=== PATIENT | female | born 1970 ===

== ENCOUNTER 2017-11-23 20:06 | Observation (INO) | payer BC ==
[2017-11-23 21:35] LABS: BASO # 0.1 K/uL (0.0-0.2); BASO % 0.4 % (0.0-2.0); EOS % 0.1 % (0.0-4.0); HEMOGLOBIN 12.6 g/dL (12.0-16.0); LYMPH # 1.5 K/uL (1.0-4.3); LYMPH % 10.1 % (20.0-40.0); MEAN CELL VOLUME 86.7 fl (81.0-99.0); MEAN CORPUSCULAR HEMOGLOBIN 28.3 pg (27.0-31.0); MEAN CORPUSCULAR HGB CONC 32.6 g/dL (33.0-37.0); MEAN PLATELET VOLUME 7.1 fl (7.2-11.7); MONO # 0.4 K/uL (0.0-0.8); MONO % 2.5 % (0.0-10.0); NEUT # 12.7 K/uL (1.8-7.0); NEUT % 86.9 % (50.0-75.0); NRBC % 0.1 % (0.0-0.0); RBC 4.47 Mil/uL (3.80-5.20); RED CELL DISTRIBUTION WIDTH 14.9 % (11.5-14.5); WHITE BLOOD COUNT 14.7 K/uL (4.8-10.8)
--- NOTE | 2017-11-23 21:42 | ED PDOC ---
HPI:Nausea, Vomiting, Diarrhea Time Seen by Provider: 11/23/17 20:25 Chief Complaint (Nursing): GI Problem Chief Complaint (Provider): GI Problem History Per: Patient History/Exam Limitations: no limitations Onset/Duration Of Symptoms: Days (x1) Current Symptoms Are (Timing): Still Present Additional Complaint(s): 47 year old female with medical history of breast cancer, who presents to the emergency department with a complaint of nausea, vomiting, chills and fatigue ongoing since 1500 today. Patient is currently undergoing treatments with chemotherapy at [facility] (last treatment was 2 weeks ago). PMD: Tuan Ferraro MD Past Medical History Reviewed: Historical Data, Nursing Documentation, Vital Signs Vital Signs: Last Vital Signs Temp 97.7 F 11/23/17 20:16 Pulse 79 11/23/17 20:16 Resp 17 11/23/17 20:16 BP 124/70 11/23/17 20:16 Pulse Ox 99 11/23/17 20:16 - Medical History PMH: CVA, Malignancy (breast CA) - Surgical History Surgical History: Denies: No Surg Hx Other surgeries: left wrist lymphectomy - Family History Family History: States: Unknown Family Hx - Social History Current smoker - smoking cessation education provided: No Alcohol: None Drugs: Denies - Home Medications Home Medications: Ambulatory Orders Medication Instructions Recorded No Known Home Med 11/24/17 - Allergies Allergies/Adverse Reactions: Allergies Allergy/AdvReac Type Severity Reaction Status Date / Time No Known Allergies Allergy Verified 11/23/17 20:18 Review of Systems ROS Statement: Except As Marked, All Systems Reviewed And Found Negative Constitutional: Positive for: Chills, Malaise (fatigue). Negative for: Fever Respiratory: Negative for: Cough Gastrointestinal: Positive for: Nausea, Vomiting. Negative for: Abdominal Pain , Diarrhea Physical Exam - Reviewed Nursing Documentation Reviewed: Yes Vital Signs Reviewed: Yes - Physical Exam Appears: Positive for: Non-toxic, No Acute Distress Skin: Positive for: Warm, Dry. Negative for: Rash, Cyanosis Eye Exam: Positive for: Normal appearance, EOMI, PERRL. Negative for: Nystagmus , Scleral icterus ENT: Positive for: Other (dry mucous membranes). Negative for: Normal ENT Inspection Neck: Positive for: Normal, Painless ROM, Supple. Negative for: Decreased ROM Cardiovascular/Chest: Positive for: Regular Rate, Rhythm, Chest Non Tender Respiratory: Positive for: Normal Breath Sounds. Negative for: Decreased Breath Sounds, Wheezing, Respiratory Distress Gastrointestinal/Abdominal: Positive for: Normal Exam, Soft. Negative for: Tenderness, Mass Extremity: Positive for: Normal ROM (upper/lower). Negative for: Pedal Edema ( bilateral) Neurologic/Psych: Positive for: Alert (x3), Oriented - Laboratory Results Result Diagrams: 11/23/17 21:26 11/23/17 21:26 - ECG O2 Sat by Pulse Oximetry: 99 (RA) Pulse Ox Interpretation: Normal Medical Decision Making Medical Decision Making: Initial Impression: Nausea; Vomiting Initial Plan: * CMP * Urine * CBC * NS 1,000ml IV per 1,000mls/hr * Zofran inj 8mg IVP * Urine culture * Influenza A B * UA Labs reviewed : WBC is 14. Rapid flu (-). Considering elevated wbc UA, CXR ordered. On re-evaluation, patient reports that the nausea had improved, however returned and c/o dizziness as well. On exam, patient remains AAOx3, in mild distress. On exam, abdomen soft, non-tender, repeat neuro exam shows no focal findings. Medicated with reglan 10 mg IV and benadryl 25 mg IV. CXR : NAD, as read by [facility]. UA shows no UTI. EKG : NSR at 86 bpm, (+) LVH, as read by [facility]. On second re-evaluation, patient reports of continue dizziness and nausea after she returned from XR, patient with difficulty tolerating po fluids. Based on history, exam and diagnostic results, plan will be for inpatient observation. Case d/w Dr. Deleon, agrees with plan for inpt obs. Patient notified of further plan for inpatient care and she agrees with plan. Patient states she fully agrees with and understands further plan of care. I have given the patient opportunity to ask any additional questions Scribe Attestation: Documented by Mehnaz Brasher, acting as a scribe for Roxanne Salvador PA-C. Provider Scribe Attestation: All medical record entries made by the Scribe were at my direction and personally dictated by me. I have reviewed the chart and agree that the record accurately reflects my personal performance of the history, physical exam, medical decision making, and the department course for this patient. I have also personally directed, reviewed, and agree with the discharge instructions and disposition. Disposition - Clinical Impression Clinical Impression: Intractable nausea and vomiting, Dehydration - Patient ED Disposition Is Patient to be Admitted: Yes Counseled Patient/Family Regarding: Studies Performed, Diagnosis - Disposition Disposition Time: 00:45 Condition: STABLE - PA / PREDICTIVE MAINTENANCE SPECIALIST / Resident Statement / has reviewed & agrees with the documentation as recorded.
[2017-11-23 21:45] LABS: ALB/GLOB RATIO 1.4 (1.0-2.1); ALBUMIN 4.2 g/dL (3.5-5.0); ALT/SGPT 64 U/L (9-52); AST/SGOT 30 U/L (14-36); BLOOD UREA NITROGEN 19 mg/dl (7-17); CALCIUM 9.5 mg/dL (8.4-10.2); GFR AFRICAN-AMERICAN > 60; GFR NON-AFRICAN AMERICAN > 60
[2017-11-23] MEDS: Sodium Chloride 0.9% 1,000 ML IV SCH (21:53)
[2017-11-23] MEDS ORDERED: DiphenhydrAMINE 50 mg/ml Inj IVP STA (22:34)
[2017-11-23] MEDS ORDERED: DiphenhydrAMINE 50 mg/ml Inj ONE (22:37)
[2017-11-23 23:16] LABS: SQUAMOUS EPITHIAL 6 /hpf (0-5); URINE BACTERIA RARE (<OCC); URINE BILIRUBIN NEGATIVE (NEGATIVE); URINE CLARITY SLIGHTY-CLOUDY (Clear); URINE COLOR YELLOW (YELLOW); URINE GLUCOSE (UA) NEG (Normal); URINE LEUKOCYTE ESTERASE NEG Leu/uL (Negative); URINE NITRATE NEGATIVE (NEGATIVE); URINE PROTEIN NEGATIVE (NEGATIVE); URINE UROBILINOGEN 0.2-1.0 mg/dL (0.2-1.0)
[2017-11-23 23:17] LABS: URINE BLOOD SMALL (NEGATIVE)
[2017-11-24] MEDS ORDERED: Sodium Chloride 0.9% 1,000 ML IV SCH (01:00)
[2017-11-24] MEDS: Sodium Chloride 0.9% 1,000 ML IV SCH ×5 (07:24→15:33)
--- NOTE | 2017-11-24 10:25 | CP.PCM.HP ---
History of Present Illness - History of Present Illness History of Present Illness: CC: Nausea/vomiting, dizziness A 47 year old female with hx of breast ca currently undergoing chemotherapy treatment at [facility] presents to the ED with c/o of nausea/vomiting and feeling of dizziness x 1 day. Patient states she started feeling nauseous yesterday, however the nausea got worse, she vomited and started feeling dizzy thus prompting her ED visit. Patient states she was diagnosed last year with left breast ca, she had a lumpectomy done in August 2017 and is now on her 3rd cycle of chemotherapy with the fourth to begin tomorrow. Patient states she had a stroke in 1999 with no physical limitations. However, pt states she had mild seizures s/p stroke, was taking Keppra until last month when she finally weaned herself off of the Keppra since she hadn't had any seizures in over 10 years. Pt states she had heart surgery for PFO in 2000. In the ED pt was treated for nausea and now feels better, however, pt continues to c/o of severe dizziness with no neurological deficits. Pt states she gets occasional migraine headaches but denies any headache at this time. Patient trauma, LOC, ear pain, chest pain or sob. Present on Admission - Present on Admission Any Indicators Present on Admission: No Review of Systems - Review of Systems All systems: reviewed and no additional remarkable complaints except (as per HPI ) - Constitutional Constitutional: As Per HPI - EENT Eyes: As Per HPI - Breasts Breasts: As Per HPI - Cardiovascular Cardiovascular: As Per HPI - Respiratory Respiratory: As Per HPI - Gastrointestinal Gastrointestinal: As Per HPI - Musculoskeletal Musculoskeletal: As Per HPI - Neurological Neurological: As Per HPI, Dizziness, Vertigo Past Patient History - Infectious Disease Hx of Infectious Diseases: None - Past Medical History & Family History Past Medical History?: Yes - Past Social History Smoking Status: Never Smoked Alcohol: None Drugs: Denies Home Situation {Lives}: With Family - CARDIAC Hx Cardiac Disorders: Yes (PFO) - NEUROLOGICAL HX Cerebrovascular Accident: Yes (Right Frontal lobe stroke) - PSYCHIATRIC Hx Substance Use: No - SURGICAL HISTORY Hx Surgeries: Yes (Heart surgery to correct PFO, left breast lumpectomy) Other/Comment: Left wrist lymphectomy Meds Allergies/Adverse Reactions: Allergies Allergy/AdvReac Type Severity Reaction Status Date / Time Penicillins Allergy RASH Verified 11/24/17 12:32 Physical Exam - Constitutional Appears: Well, No Acute Distress - Head Exam Head Exam: ATRAUMATIC, NORMOCEPHALIC - Eye Exam Eye Exam: Normal appearance, PERRL Pupil Exam: NORMAL ACCOMODATION, PERRL - ENT Exam ENT Exam: Mucous Membranes Moist, Normal Exam - Neck Exam Neck exam: Positive for: Full Rom, Normal Inspection - Respiratory Exam Respiratory Exam: Clear to Auscultation Bilateral, NORMAL BREATHING PATTERN - Cardiovascular Exam Cardiovascular Exam: REGULAR RHYTHM, +S1, +S2 - GI/Abdominal Exam GI & Abdominal Exam: Normal Bowel Sounds, Soft - Rectal Exam Rectal Exam: Deferred - Extremities Exam Extremities exam: Positive for: full ROM, normal capillary refill, normal inspection - Back Exam Back exam: FULL ROM, NORMAL INSPECTION - Neurological Exam Neurological exam: Alert, Oriented x3, Reflexes Normal - Psychiatric Exam Psychiatric exam: Normal Affect, Normal Mood - Skin Skin Exam: Dry, Intact, Warm Results - Vital Signs Recent Vital Signs: Last Vital Signs Temp 98.4 F 11/24/17 07:04 Pulse 81 11/24/17 07:04 Resp 16 11/24/17 07:04 BP 108/63 11/24/17 07:04 Pulse Ox 98 11/24/17 07:04 - Labs Result Diagrams: 11/23/17 21:26 11/23/17 21:26 Labs: Laboratory Results - last 24 hr 11/23/17 11/23/17 11/23/17 21:26 21:26 21:26 WBC 14.7 H RBC 4.47 Hgb 12.6 Hct 38.7 MCV 86.7 MCH 28.3 MCHC 32.6 L RDW 14.9 H Plt Count 248 MPV 7.1 L Neut % (Auto) 86.9 H Lymph % (Auto) 10.1 L [place] % (Auto) 2.5 Eos % (Auto) 0.1 Baso % (Auto) 0.4 Neut # (Auto) 12.7 H Lymph # (Auto) 1.5 [place] # (Auto) 0.4 Eos # (Auto) 0.0 Baso # (Auto) 0.1 Sodium 142 Potassium 3.6 Chloride 104 Carbon Dioxide 25 Anion Gap 17 BUN 19 H Creatinine 0.7 Est GFR ( Amer) > 60 Est GFR (Non-Af Amer) > 60 Random Glucose 132 H Calcium 9.5 Total Bilirubin 0.4 AST 30 ALT 64 H Alkaline Phosphatase 116 Total Protein 7.1 Albumin 4.2 Globulin 2.9 Albumin/Globulin Ratio 1.4 Urine Color Urine Clarity Urine pH Ur Specific [place] Urine Protein Urine Glucose (UA) Urine Ketones Urine Blood Urine Nitrate Urine Bilirubin Urine Urobilinogen Ur Leukocyte Esterase Urine RBC (Auto) Urine Microscopic WBC Ur Squamous Epith Cells Urine Bacteria Influenza Typ A,B (EIA) Negative for flu a/b 11/23/17 23:07 WBC RBC Hgb Hct MCV MCH MCHC RDW Plt Count MPV Neut % (Auto) Lymph % (Auto) [place] % (Auto) Eos % (Auto) Baso % (Auto) Neut # (Auto) Lymph # (Auto) [place] # (Auto) Eos # (Auto) Baso # (Auto) Sodium Potassium Chloride Carbon Dioxide Anion Gap BUN Creatinine Est GFR ( Amer) Est GFR (Non-Af Amer) Random Glucose Calcium Total Bilirubin AST ALT Alkaline Phosphatase Total Protein Albumin Globulin Albumin/Globulin Ratio Urine Color Yellow Urine Clarity Slighty-cloudy Urine pH 8.0 Ur Specific [place] 1.018 Urine Protein Negative Urine Glucose (UA) Neg Urine Ketones 20 Urine Blood Small Urine Nitrate Negative Urine Bilirubin Negative Urine Urobilinogen 0.2-1.0 Ur Leukocyte Esterase Neg Urine RBC (Auto) 12 H Urine Microscopic WBC 3 Ur Squamous Epith Cells 6 H Urine Bacteria Rare Influenza Typ A,B (EIA) - Imaging and Cardiology CT head Additional comment: PROCEDURE: CT HEAD WITH CONTRAST HISTORY: Vertigo, N/V COMPARISON: None available. TECHNIQUE: Axial computed tomography images were obtained through the head/brain with intravenous contrast. Contrast dose: 95 mL of Omnipaque 300 Radiation dose: Total exam DLP = 838.5 mGy-cm. This CT exam was performed using one or more of the following dose reduction techniques: Automated exposure control, adjustment of the mA and/or kV according to patient size, and/or use of iterative reconstruction technique. FINDINGS: HEMORRHAGE: No intracranial hemorrhage. BRAIN: No mass, mass effect or edema. There is extra-axial low-attenuation structure at the posterior inferior aspect of the right frontal lobe adjacent to the frontal horn of the lateral ventricle. The differential diagnosis includes extra-axial cyst such as arachnoid cyst versus focal cortical dysplasia or encephalomalacia with cystic gliosis. No evidence of significant mass effect on the adjacent structures. No abnormal intracranial enhancement. No atrophy or chronic microvascular ischemic changes. VENTRICLES: Unremarkable. No hydrocephalus. CALVARIUM: Unremarkable. PARANASAL SINUSES: Unremarkable as visualized. No significant inflammatory changes. MASTOID AIR CELLS: Unremarkable as visualized. No mastoid effusion. OTHER FINDINGS: None. IMPRESSION: No evidence of enhancing mass lesion mass effect or midline shift. Low-attenuation cystic structure noted at the right posterior frontal lobe may represent extra-axial cyst such as arachnoid cyst versus cortical defect due to old injury or infarction. If clinically warranted further assessment by MRI may be obtained. Assessment & Plan (1) Intractable nausea and vomiting Assessment and Plan: Most likely related to recent chemotherapy Zofran/Compazine prn IVF Status: Acute Priority: High (2) Vertigo Assessment and Plan: Most likely benign positional vertigo given pt's hx will do MRI brain Neurology consult Meclizine prn IVF Status: Acute Priority: High (3) Breast cancer Assessment and Plan: Current chemotherapy treatment at [facility] f/u with oncologist upon discharge Status: Acute Priority: High
--- NOTE | 2017-11-24 10:46 | RAD ---
HISTORY: vomiting COMPARISON: No prior. TECHNIQUE: Chest PA and lateral FINDINGS: LUNGS: No active pulmonary disease. PLEURA: No significant pleural effusion identified. No pneumothorax apparent. CARDIOVASCULAR: Prior sternotomy with sternal wires and surgical clips in place. Cardiomediastinal silhouette within normal limits. OSSEOUS STRUCTURES: Degenerative changes. VISUALIZED UPPER ABDOMEN: Normal. OTHER FINDINGS: Left axillary surgical clips. IMPRESSION: No active disease.
[2017-11-24] MEDS ORDERED: Sodium Chloride 0.9% 50 ML IV ONE (11:23)
[2017-11-24] MEDS ORDERED: Iohexol 300 100 ML IJ ONE (11:23)
--- NOTE | 2017-11-24 11:30 | CARD ---
APPROVED REPORT EKG Measurement Heart [id number] <Conclusion> Normal sinus rhythm Possible Left atrial enlargement Left ventricular hypertrophy Abnormal ECG
--- NOTE | 2017-11-24 12:17 | CT ---
PROCEDURE: CT HEAD WITH CONTRAST HISTORY: Vertigo, N/V COMPARISON: None available. TECHNIQUE: Axial computed tomography images were obtained through the head/brain with intravenous contrast. Contrast dose: 95 mL of Omnipaque 300 Radiation dose: Total exam DLP = 838.5 mGy-cm. This CT exam was performed using one or more of the following dose reduction techniques: Automated exposure control, adjustment of the mA and/or kV according to patient size, and/or use of iterative reconstruction technique. FINDINGS: HEMORRHAGE: No intracranial hemorrhage. BRAIN: No mass, mass effect or edema. There is extra-axial low-attenuation structure at the posterior inferior aspect of the right frontal lobe adjacent to the frontal horn of the lateral ventricle. The differential diagnosis includes extra-axial cyst such as arachnoid cyst versus focal cortical dysplasia or encephalomalacia with cystic gliosis. No evidence of significant mass effect on the adjacent structures. No abnormal intracranial enhancement. No atrophy or chronic microvascular ischemic changes. VENTRICLES: Unremarkable. No hydrocephalus. CALVARIUM: Unremarkable. PARANASAL SINUSES: Unremarkable as visualized. No significant inflammatory changes. MASTOID AIR CELLS: Unremarkable as visualized. No mastoid effusion. OTHER FINDINGS: None. IMPRESSION: No evidence of enhancing mass lesion mass effect or midline shift. Low-attenuation cystic structure noted at the right posterior frontal lobe may represent extra-axial cyst such as arachnoid cyst versus cortical defect due to old injury or infarction. If clinically warranted further assessment by MRI may be obtained.
[2017-11-24] MEDS ORDERED: Gadodiamide 287 MG/ML VIAL (15ML) IV ONE (16:22)
--- NOTE | 2017-11-24 17:26 | MRI ---
PROCEDURE: MRI BRAIN WITH AND WITHOUT CONTRAST HISTORY: Intractable vertigo, hx of stroke COMPARISON: None. TECHNIQUE: Multiplanar, multisequence MR images of the brain were obtained with and without intravenous contrast enhancement. FINDINGS: HEMORRHAGE: None DWI: No evidence of an acute or early subacute infarction. BRAIN PARENCHYMA: A similar is suspected cystic encephalomalacia seen at the right frontal lobe opercular parenchyma with local white-matter signal abnormality appreciated in its periphery. The calvarium does not appear clearly disrupted and postoperative changes not suspected here however clinical correlation is advised if consider possible posttraumatic or post ischemic change. Remaining signal abnormality throughout the joseph and white matter anatomy above and below the tentorium appears unremarkable including throughout the brainstem. There is no significant mass effect. There is no suspicious extra-axial fluid collection appreciated. Cortical or medullary differentiation remains good exclusive of the lesion noted above. ENHANCEMENT: No abnormal intracranial enhancement. VENTRICLES: Unremarkable. No hydrocephalus. CRANIUM: Unremarkable. ORBITS: Grossly unremarkable. PARANASAL SINUSES/MASTOIDS: Clear VASCULAR SYSTEM: Skull base flow voids intact. OTHER FINDINGS: None . IMPRESSION: Cystic encephalomalacia is appreciated at the right frontal opercular region. Consider potential postoperative or posttraumatic change here. Remainder the brain appears unremarkable. No abnormal intracranial enhancement identified throughout. No acute separate brain infarction mass effect or definite intracranial hemorrhage appreciable. No suspicious intracranial enhancement appreciate including related to the right frontal pathology described above.
--- NOTE | 2017-11-24 17:27 | MRI ---
PROCEDURE: Magnetic Resonance Angiography Brain HISTORY: Intractable vertigo, hx of stroke COMPARISON: None available. TECHNIQUE: 3D time of flight MR angiography of the intracranial arteries was performed. Rotating maximum intensity projection images were generated. FINDINGS: INTERNAL CAROTID ARTERIES: Unremarkable. The skull base, petrous, cavernous and supraclinoid segments are bilaterally widely patient. ANTERIOR CEREBRAL ARTERIES: Unremarkable. A1 and A2 segments are widely patent. Smaller distal branches unremarkable, as visualized. MIDDLE CEREBRAL ARTERIES: Unremarkable. M1 and M2 segments are widely patent. Perisylvian branches grossly symmetric. POSTERIOR CIRCULATION: Basilar Artery: Unremarkable. Distal Vertebral Arteries: Left dominant vertebrobasilar circulation with both distal vertebral arteries appreciated patent as imaged. Posterior Cerebral Arteries: Unremarkable. Posterior Inferior Cerebellar Arteries: Unremarkable. ANEURYSM/ VASCULAR MALFORMATIONS: None. OTHER FINDINGS: None. IMPRESSION: Unremarkable MR angiography of the brain.
--- NOTE | 2017-11-24 19:09 | CP.PCM.CON ---
History of Present Illness - History of Present Illness History of Present Illness: 47 yr old woman who was diagnosed with breast cancer 1 year ago, on her third round of Chemotherapy at [facility], who has a history of an ischemic stroke at age 29 due to OCP use and PFO, s/p PFO closure,s/p remote coumadin use, who presents today with acute one day onset of vomiting and dizziness. Patient denies fever, headache, tinnitus, otalgia, head trauma or MVA. 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 She came to the hospital and was admitted. On my examination, Miss Guzman has a normal neurological examination except she is dizzy when she walks and has difficulty walking tandem. There is no drift, no weakness, no visual field cut. She speaks well with no aphasia, dysarthria, or confusion. She has no meningeal signs. PMH/PSH: Breast ca, as above. 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 no tobacco, no etoh. Has 2 children, . All: peniciliin. On exam: Normal neurological examination except difficulty walking tandem: falls to the rigth. no rhomberg. Past Patient History - Past Medical History & Family History Past Medical History?: Yes - Past Social History Smoking Status: Never Smoked - CARDIAC Hx Cardiac Disorders: No - PULMONARY Hx Respiratory Disorders: Yes Hx Asthma: Yes - NEUROLOGICAL Hx Neurological Disorder: Yes HX Cerebrovascular Accident: Yes - HEENT Hx HEENT Problems: No - RENAL Hx Chronic Kidney Disease: No - ENDOCRINE/METABOLIC Hx Endocrine Disorders: No - HEMATOLOGICAL/ONCOLOGICAL Hx Blood Disorders: No Other/Comment: BREAST CA; LYMPH NODES REMOVED - INTEGUMENTARY Hx Dermatological Problems: No - MUSCULOSKELETAL/RHEUMATOLOGICAL Hx Musculoskeletal Disorders: No Hx Falls: No Other/Comment: FIBROMYALGIA - GENITOURINARY/GYNECOLOGICAL Hx Genitourinary Disorders: No - PSYCHIATRIC Hx Psychophysiologic Disorder: No Hx Substance Use: No - SURGICAL HISTORY Hx Surgeries: Yes Other/Comment: Left wrist lymphectomy; Left eye surgery - ANESTHESIA Hx Anesthesia: Yes Hx Anesthesia Reactions: No Meds Allergies/Adverse Reactions: Allergies Allergy/AdvReac Type Severity Reaction Status Date / Time Penicillins Allergy RASH Verified 11/24/17 12:32 - Medications Medications: Current Medications Sodium Chloride (Sodium Chloride 0.9%) 1,000 mls @ 100 mls/hr IV .Q10H CARLOS Stop: 11/25/17 14:24 Last Admin: 11/24/17 15:33 Dose: 100 mls/hr Meclizine HCl (Antivert) 25 mg PO Q8 [facility] Last Admin: 11/24/17 10:33 Dose: 25 mg Prochlorperazine (Compazine) 10 mg PO QID PRN PRN Reason: Nausea/Vomiting Last Admin: 11/24/17 11:25 Dose: 10 mg Results - Vital Signs Recent Vital Signs: Last Vital Signs Temp 98.8 F 11/24/17 16:03 Pulse 84 11/24/17 16:03 Resp 17 11/24/17 16:03 BP 112/77 11/24/17 16:03 Pulse Ox 97 11/24/17 16:03 - Labs Result Diagrams: 11/23/17 21:26 11/23/17 21:26 Labs: Laboratory Results - last 24 hr 11/23/17 11/23/17 11/23/17 21:26 21:26 21:26 WBC 14.7 H RBC 4.47 Hgb 12.6 Hct 38.7 MCV 86.7 MCH 28.3 MCHC 32.6 L RDW 14.9 H Plt Count 248 MPV 7.1 L Neut % (Auto) 86.9 H Lymph % (Auto) 10.1 L [place] % (Auto) 2.5 Eos % (Auto) 0.1 Baso % (Auto) 0.4 Neut # (Auto) 12.7 H Lymph # (Auto) 1.5 [place] # (Auto) 0.4 Eos # (Auto) 0.0 Baso # (Auto) 0.1 Sodium 142 Potassium 3.6 Chloride 104 Carbon Dioxide 25 Anion Gap 17 BUN 19 H Creatinine 0.7 Est GFR ( Amer) > 60 Est GFR (Non-Af Amer) > 60 Random Glucose 132 H Calcium 9.5 Total Bilirubin 0.4 AST 30 ALT 64 H Alkaline Phosphatase 116 Total Protein 7.1 Albumin 4.2 Globulin 2.9 Albumin/Globulin Ratio 1.4 Urine Color Urine Clarity Urine pH Ur Specific [place] Urine Protein Urine Glucose (UA) Urine Ketones Urine Blood Urine Nitrate Urine Bilirubin Urine Urobilinogen Ur Leukocyte Esterase Urine RBC (Auto) Urine Microscopic WBC Ur Squamous Epith Cells Urine Bacteria Influenza Typ A,B (EIA) Negative for flu a/b 11/23/17 23:07 WBC RBC Hgb Hct MCV MCH MCHC RDW Plt Count MPV Neut % (Auto) Lymph % (Auto) [place] % (Auto) Eos % (Auto) Baso % (Auto) Neut # (Auto) Lymph # (Auto) [place] # (Auto) Eos # (Auto) Baso # (Auto) Sodium Potassium Chloride Carbon Dioxide Anion Gap BUN Creatinine Est GFR ( Amer) Est GFR (Non-Af Amer) Random Glucose Calcium Total Bilirubin AST ALT Alkaline Phosphatase Total Protein Albumin Globulin Albumin/Globulin Ratio Urine Color Yellow Urine Clarity Slighty-cloudy Urine pH 8.0 Ur Specific [place] 1.018 Urine Protein Negative Urine Glucose (UA) Neg Urine Ketones 20 Urine Blood Small Urine Nitrate Negative Urine Bilirubin Negative Urine Urobilinogen 0.2-1.0 Ur Leukocyte Esterase Neg Urine RBC (Auto) 12 H Urine Microscopic WBC 3 Ur Squamous Epith Cells 6 H Urine Bacteria Rare Influenza Typ A,B (EIA) - Imaging and Cardiology MRI - head Additional comment: MRI Brain: normal. no stroke, or hemorrhage. Assessment & Plan - Assessment and Plan (Free Text) Assessment: 47 yr old woman with most likely viral labyrinthitis or late sequelae of chemotherapy. Plan: 1. Continue current treatment. 2. Hydration and iV fluids 3. IF stable, discharge am.
[2017-11-25] MEDS: Sodium Chloride 0.9% 1,000 ML IV SCH ×2 (01:53→12:20)
[2017-11-25 16:21] VITALS: BP 98/61; PULSE 81; RESP 18; TEMP 97.5; O2SAT 98
--- NOTE | 2017-11-26 00:27 | CP.PCM.DIS ---
Provider - Provider Date of Admission: 11/24/17 00:47 Attending physician: Jordy Deleon MD Primary care physician: Tuan Ferraro MD Time Spent in preparation of Discharge (in minutes): 25 Diagnosis - Discharge Diagnosis (1) Intractable nausea and vomiting Status: Acute Priority: High (2) Vertigo Status: Acute Priority: High (3) Breast cancer Status: Acute Priority: High Hospital Course - Lab Results Lab Results: Micro Results 11/23/17 05:46 Urine Urine Culture - Final No Growth (<1,000 CFU/ML) Most Recent Lab Values WBC 14.7 K/uL (4.8-10.8) H 11/23/17 21:26 RBC 4.47 Mil/uL (3.80-5.20) 11/23/17 21:26 Hgb 12.6 g/dL (12.0-16.0) 11/23/17 21: Hct 38.7 % (34.0-47.0) 11/23/17 21: MCV 86.7 fl (81.0-99.0) 11/23/17 21:26 MCH 28.3 pg (27.0-31.0) 11/23/17 21: MCHC 32.6 g/dL (33.0-37.0) L 11/23/17 21:26 RDW 14.9 % (11.5-14.5) H 11/23/17 21:26 Plt Count 248 K/uL (130-400) 11/23/17 21:26 MPV 7.1 fl (7.2-11.7) L 11/23/17 21:26 Neut % (Auto) 86.9 % (50.0-75.0) H 11/23/17 21:26 Lymph % (Auto) 10.1 % (20.0-40.0) L 11/23/17 21:26 [place] % (Auto) 2.5 % (0.0-10.0) 11/23/17 21:26 Eos % (Auto) 0.1 % (0.0-4.0) 11/23/17 21:26 Baso % (Auto) 0.4 % (0.0-2.0) 11/23/17 21:26 Neut # (Auto) 12.7 K/uL (1.8-7.0) H 11/23/17 21:26 Lymph # (Auto) 1.5 K/uL (1.0-4.3) 11/23/17 21:26 [place] # (Auto) 0.4 K/uL (0.0-0.8) 11/23/17 21:26 Eos # (Auto) 0.0 K/uL (0.0-0.7) 11/23/17 21:26 Baso # (Auto) 0.1 K/uL (0.0-0.2) 11/23/17 21:26 Sodium 142 mmol/l (132-148) 11/23/17 21:26 Potassium 3.6 MMOL/L (3.6-5.0) 11/23/17 21:26 Chloride 104 mmol/L (98-107) 11/23/17 21:26 Carbon Dioxide 25 mmol/L (22-30) 11/23/17 21:26 Anion Gap 17 (10-20) 11/23/17 21:26 BUN 19 mg/dl (7-17) H 11/23/17 21:26 Creatinine 0.7 mg/dl (0.7-1.2) 11/23/17 21:26 Est GFR ( Amer) > 60 11/23/17 21:26 Est GFR (Non-Af Amer) > 60 11/23/17 21:26 Random Glucose 132 mg/dL (65-105) H 11/23/17 21:26 Calcium 9.5 mg/dL (8.4-10.2) 11/23/17 21:26 Total Bilirubin 0.4 mg/dl (0.2-1.3) 11/23/17 21:26 AST 30 U/L (14-36) 11/23/17 21:26 ALT 64 U/L (9-52) H 11/23/17 21:26 Alkaline Phosphatase 116 U/L (38-126) 11/23/17 21:26 Total Protein 7.1 G/DL (6.3-8.2) 11/23/17 21:26 Albumin 4.2 g/dL (3.5-5.0) 11/23/17 21:26 Globulin 2.9 gm/dL (2.2-3.9) 02/08/18 21:26 Albumin/Globulin Ratio 1.4 (1.0-2.1) 11/23/17 21:26 Urine Color Yellow (YELLOW) 11/23/17 23:07 Urine Clarity Slighty-cloudy (Clear) 11/23/17 23:07 Urine pH 8.0 (5.0-8.0) 11/23/17 23:07 Ur Specific [place] 1.018 (1.003-1.030) 11/23/17 23:07 Urine Protein Negative mg/dL (NEGATIVE) 11/23/17 23:07 Urine Glucose (UA) Neg mg/dL (Normal) 11/23/17 23:07 Urine Ketones 20 mg/dL (NEGATIVE) 11/23/17 23:07 Urine Blood Small (NEGATIVE) 11/23/17 23:07 Urine Nitrate Negative (NEGATIVE) 11/23/17 23:07 Urine Bilirubin Negative (NEGATIVE) 11/23/17 23:07 Urine Urobilinogen 0.2-1.0 mg/dL (0.2-1.0) 11/23/17 23:07 Ur Leukocyte Esterase Neg [place]/uL (Negative) 11/23/17 23:07 Urine RBC (Auto) 12 /hpf (0-3) H 11/23/17 23:07 Urine Microscopic WBC 3 /hpf (0-5) 11/23/17 23:07 Ur Squamous Epith Cells 6 /hpf (0-5) H 11/23/17 23:07 Urine Bacteria Rare (<OCC) 11/23/17 23:07 Influenza Typ A,B (EIA) Negative for flu a/b (NEGATIVE) 11/23/17 21:26 Discharge Exam - Head Exam Head Exam: ATRAUMATIC, NORMOCEPHALIC Discharge Plan - Follow Up Plan Condition: STABLE Disposition: HOME/ ROUTINE Referrals: Tuan Ferraro MD [Primary Care Provider] -
== END 2017-11-25 19:49 | disposition home or self-care (01) ==
LOC: H.ER 20:06 → H.ERHOLD 11-24 00:47 → H.MEDSURG1 11-24 11:57
PROVIDERS: ADMIT Internal Medicine; ATTEND Internal Medicine
DX: R11.2 Nausea with vomiting, unspecified (principal); C50.919 Malignant neoplasm of unspecified site of unspecified female breast; E86.0 Dehydration; Z86.73 Personal history of transient ischemic attack (TIA), and cerebral infarction without residual deficits; R42 Dizziness and giddiness; Z88.0 Allergy status to penicillin; R19.7 Diarrhea, unspecified
CPT/HCPCS: 70460; 70544; 70553; 71046; 80053; 81003; 81025; 85025; 87086; 87804; 93005; 96374; 96375; 96376; 99285; A9579; G0378; J1200; J2405; J2765; J7040; Q0164; Q9967